=== PATIENT | female | born 2000 | race African-American/Black ===

== ENCOUNTER 2020-01-21 13:59 | Emergency (ER) | payer SELFPAY ==
[~2020-01-21] VITALS: Ht 160 cm; Wt 54.0 kg
[2020-01-21 15:29] VITALS: BP 131/78
== END 2020-01-21 15:30 | disposition home or self-care (01) ==
LOC: ER 14:47
DX: N76.4 Abscess of vulva (principal); J45.909 Unspecified asthma, uncomplicated; F12.10 Cannabis abuse, uncomplicated; Z98.890 Other specified postprocedural states
CPT/HCPCS: 99283